=== PATIENT | male | born 1990 | race African-American/Black ===

== ENCOUNTER 2018-04-24 19:46 | Emergency (ER) | payer OTHER ==
[~2018-04-24] VITALS: Ht 170.2 cm; Wt 70.5 kg
[2018-04-24 19:54] VITALS: BP 130/69
[2018-04-24] MEDS ORDERED: MORPHINE 10 MG/ML 1ML VIAL (J2270) IM ONE (20:30)
--- NOTE | 2018-04-24 21:28 | REPVR ---
EXAM: CT Lumbar Spine Without Contrast EXAM DATE/TIME: 04/24/2018 8:30 PM CLINICAL HISTORY: 28 years old, male; Injury or trauma; Fall; Initial encounter; Blunt trauma (contusions or hematomas); Additional info: Lumbar pain S/P fall from box car, landing on back TECHNIQUE: Axial computed tomography images of the lumbar spine without intravenous contrast. All CT scans at this facility use at least one of these dose optimization techniques: automated exposure control; mA and/or kV adjustment per patient size (includes targeted exams where dose is matched to clinical indication); or iterative reconstruction. Coronal and sagittal reformatted images were created and reviewed. COMPARISON: No relevant prior studies available. FINDINGS: Vertebrae: Normal bone density. No acute fracture. Normal alignment. Discs/Spinal canal/Neural foramina: No spinal stenosis. No neural foraminal narrowing. Soft tissues: Unremarkable. IMPRESSION: No acute findings. Electronically signed by: Juan Burris On 04/24/2018 21:28:33 PM
--- NOTE | 2018-04-24 21:54 | REP ---
Clinical: Trauma. Technique: AP, lateral, bilateral oblique and sunrise views right knee . Findings: The osseous structures and joint spaces are intact and normal. There is no evidence for acute fracture or dislocation. No joint effusion is appreciated. Surrounding soft tissues are unremarkable. No subcutaneous emphysema or radiodense foreign body. Impression: Normal examination. No acute fracture or dislocation. Electronically Signed by Bam Low MD 04/24/2018 09:46 P
[2018-04-24] MEDS ORDERED: KETOROLAC 60 MG/2 ML VIAL (J1885) IM ONE (22:30)
[2018-04-24] MEDS ORDERED: diazePAM 5 MG TAB PO ONE (22:30)
[2018-04-24] MEDS ORDERED: PERCOCET 5MG/325MG TAB PO ONE (22:30)
[2018-04-24] MEDS ORDERED: TIZA4CAP PO (23:25)
[2018-04-24] MEDS ORDERED: NAPR-50 PO (23:25)
[2018-04-24] MEDS ORDERED: ADJU7MIS XX (23:25)
--- NOTE | 2018-04-25 07:32 | REP ---
Clinical: Status post fall. Technique: Single AP view of the pelvis. Findings: Acute fracture or dislocation. Skeletal structures, joint spaces, and surrounding soft tissues are normal. Impression: Normal pelvic radiograph. No acute fracture or dislocation. Electronically Signed by Bam Low MD 04/25/2018 07:22 A
== END 2018-04-24 23:46 | disposition home or self-care (01) ==
LOC: M ED 19:46
DX: S39.012A Strain of muscle, fascia and tendon of lower back, initial encounter (principal); S30.0XXA Contusion of lower back and pelvis, initial encounter; W00.2XXA Other fall from one level to another due to ice and snow, initial encounter; Y92.89 Other specified places as the place of occurrence of the external cause; Y99.0 Civilian activity done for income or pay
CPT/HCPCS: 72131; 72170; 73564; 96372; 99284; J1885; J2270